=== PATIENT | male | born 1965 | race Caucasian/White ===

== ENCOUNTER 2024-02-21 16:25 | Emergency (ER) | payer SELFPAY ==
[2024-02-21 16:42] VITALS: BP 167/91; PULSE 84; RESP 18; TEMP 36.8; O2SAT 97; BMI 23.0
[2024-02-21 16:52] VITALS: BP 167/91; PULSE 84; RESP 18; O2SAT 97
--- NOTE | 2024-02-21 16:53 | W.ED.DENTAL ---
Documented by User: [email or web address] Jamil 02/21/24 16:58 HPI - Dental/Oral General: Chief complaint: Dental/Oral Stated complaint: mouth pain Time Seen by Provider: 02/21/24 16:41 Source: patient Mode of arrival: ambulatory Limitations: no limitations History of Present Illness: Patient is a 58-year-old male who presents to the emergency department complaining of right lower dental pain. His pain is worse with any eating or drinking. Patient states he just moved to the area and is trying to establish with a dentist. He has had dental abscess in the past and states this feels similar. He is also reporting some associated facial pain as well as some intermittent fevers. He has tried ibuprofen for his pain, but has not gotten any relief. He denies any other symptoms at this time. MD Complaint: tooth pain Duration: constant Relieving factors: nothing Associated symptoms: Reports fever(s); Denies ear or mastoid pain Review of Systems General: Reports: 10 or more systems reviewed and unremarkable except in HPI and below Const: Reports: fever(s); Denies: chills or fatigue Eyes: Denies: change in vision ENMT: Reports: dental pain and sinus pain; Denies: throat pain, ear or mastoid pain or nasal discharge Card: Denies: chest pain, palpitations, swelling of feet/ankles or lightheadedness Resp: Denies: dyspnea, productive cough or wheezing GI: Denies: abdominal pain, nausea, vomiting, diarrhea or constipation : Denies: flank pain, difficulty urinating, dysuria or urinary frequency Musc: Denies: neck pain, back pain or joint pain Skin/Breast: Denies: rash Neuro: Denies: headache(s), numbness in extremities or weakness in extremities Physical Exam Const: COMMON NORMALS: no acute distress, patient oriented x3 and no limitations GENERAL APPEARANCE: cooperative, comfortable and well developed ORIENTATION/CONSCIOUSNESS: Yes awake, Yes oriented to person, Yes oriented to place and Yes oriented to time HENMT: COMMON NORMALS: normocephalic, atraumatic, hearing grossly normal bilaterally, external ears normal and Normal external nose present HEAD & SCALP: normocephalic and atraumatic FACE & SINUS: normal facial exam, face symmetric and Facial tenderness on exam of face and sinuses on the right maxilla NOSE: Normal external nose present and Normal nares present EXTERNAL EAR: Yes external ears normal MOUTH: Normal oral and palatal mucosa present, lip normal and tongue normal TEETH & GINGIVA: Yes caries, Yes fair dentition and Yes gingiva abnormal (Right lower) hypertrophic, edematous and tender Eye: COMMON NORMALS: Equal, round and reactive pupils present, EOMs intact bilaterally and conjunctivae normal CONJUNCTIVA: Yes conjunctivae normal PUPIL: Yes Equal, round and reactive pupils present Neck/C-Spine: COMMON NORMALS: full ROM, supple and no JVD Resp: COMMON NORMALS: normal respiratory effort, No retractions, No use of accessory muscles and clear to auscultation bilaterally AUSCULTATION: clear to auscultation bilaterally Cardio: COMMON NORMALS: no JVD, regular rate, regular rhythm, No clicks present (Cardio), No murmurs present (Cardio) and No rub (Cardio) RATE: regular rate RHYTHM: regular rhythm Extremity: COMMON NORMALS: normal to inspection, full ROM and capillary refill normal Neuro: COMMON NORMALS: patient oriented x3, moves all extremities, no focal motor deficits and no sensory deficits noted SENSORIUM/ORIENTATION: Yes oriented to person, Yes oriented to place and Yes oriented to time Psych: COMMON NORMALS: mental status grossly normal and Normal thought process present THOUGHT PROCESS: Normal thought process present Skin: COMMON NORMALS: no rashes or lesions noted GENERAL SKIN EXAM: no rashes or lesions noted Course Vital Signs: Vital signs: Vital Signs Temperature 98.3 F 02/21/24 16:42 Pulse Rate 84 02/21/24 16:52 Respiratory Rate 18 02/21/24 16:52 Blood Pressure 167/91 02/21/24 16:52 Pulse Oximetry 97 02/21/24 16:52 Oxygen Delivery Me thod Room Air 02/21/24 16:52 MDM - Dental/Oral Medical Decision Making Patient seen and evaluated for dental pain. He is currently trying to establish with a dentist as he just moved to the area. Vitals normal on arrival and patient is afebrile. Examination showed signs of presumed dental abscess to the right lower dentition. I will treat the patient with a dose of Augmentin prior to discharge, and send prescription to his pharmacy. Also put in case management consult to help arrange for dental follow-up. Reasons to return discussed. Patient agrees with plan. No radiology studies performed this visit Discharge Plan Discharge Patient Disposition: Home Clinical Impression: Dental abscess Condition: Stable Prescriptions: New amoxicillin-pot clavulanate 875-125 mg tablet 1 tab PO BID 10 Days Qty: 20 0RF Discharge Orders: Discharge ED (Routine); Ordered 02/21/24 Ordered By: Dick Lucero Discharge Diet: Usual diet Discharge Activity: Increase activity as tolerated Patient Instructions: Dental Abscess (ED) Activity Restrictions/Additional Instructions: Augmentin as prescribed. Tylenol for any fevers. Establish and follow-up with dentist as instructed. Return with any new or concerning symptoms. Coding Level of Care Code ED Confidential Investigator for Chg Fwd Documented by User: Jace Mackenzie DO 02/23/24 06:35 HPI - Dental/Oral General: Chief complaint: Dental/Oral Stated complaint: mouth pain Time Seen by Provider: 02/21/24 16:41 Course Vital Signs: Vital signs: Vital Signs Temperature 98.3 F 02/21/24 16:42 Pulse Rate 84 02/21/24 16:52 Respiratory Rate 18 02/21/24 16:52 Blood Pressure 167/91 02/21/24 16:52 Pulse Oximetry 97 02/21/24 16:52 Oxygen Delivery Me thod Room Air 02/21/24 16:52 MDM - Dental/Oral Medical Decision Making Patient seen and evaluated for dental pain. He is currently trying to establish with a dentist as he just moved to the area. Vitals normal on arrival and patient is afebrile. Examination showed signs of presumed dental abscess to the right lower dentition. I will treat the patient with a dose of Augmentin prior to discharge, and send prescription to his pharmacy. Also put in case management consult to help arrange for dental follow-up. Reasons to return discussed. Patient agrees with plan. Chart reviewed Discharge Plan Discharge Patient Disposition: Home Clinical Impression: Dental abscess Condition: Stable Prescriptions: New amoxicillin-pot clavulanate 875-125 mg tablet 1 tab PO BID 10 Days Qty: 20 0RF Discharge Orders: Discharge ED (Routine); Ordered 02/21/24 Ordered By: Dick Lucero Discharge Diet: Usual diet Discharge Activity: Increase activity as tolerated Patient Instructions: Dental Abscess (ED) Activity Restrictions/Additional Instructions: Augmentin as prescribed. Tylenol for any fevers. Establish and follow-up with dentist as instructed. Return with any new or concerning symptoms. Coding Level of Care Code ED Confidential Investigator for Kathy Del Cid
[2024-02-21] MEDS: amoxicillin-clav 875-125 mg Tablet 1 TAB PO (17:00)
--- NOTE | 2024-03-04 07:19 | DCPLANNER ---
I attempted to call patient on 03/04/24 at 0707 to see where he would like to establish care with a dentist at. no answer.
== END 2024-02-21 17:06 | disposition home or self-care (01) ==
PROVIDERS: Emergency Provider Physician Assistant
DX: K04.7 Periapical abscess without sinus (principal)
CPT/HCPCS: 99283